=== PATIENT | female | born 1980 | race Caucasian/White ===

== ENCOUNTER 2019-01-06 21:23 | Inpatient (IN) | payer MEDICAID, OTHER ==
[2019-01-07] MEDS: SOD CHLORIDE 0.9% 1,000 ML IV ×2 (00:34→02:20)
[2019-01-07] MEDS: SOD CHLORIDE 0.9% 0 ML IV (01:01)
[2019-01-07] MEDS ORDERED: ACETAMINOPHEN 325 MG TAB PO (02:30)
[2019-01-07] MEDS ORDERED: ONDANSETRON 4 MG INJ IV ×2 (02:30→03:30)
[2019-01-07] MEDS ORDERED: NACL 0.9% 3 ML SYG IV (03:30)
[2019-01-07] MEDS ORDERED: BISACODYL (EC) 5 MG TAB PO (03:30)
[2019-01-07] MEDS ORDERED: DOCUSATE SODIUM 100 MG CAP PO (03:30)
[2019-01-07] MEDS: ACETAMINOPHEN 325 MG TAB PO (09:13)
[2019-01-07] MEDS: CEFTRIAXONE 1 GM/50 ML (PMX) 50 ML IVPB (11:05)
[2019-01-07] MEDS: TRANEXAMIC ACID 1GM/100ML(PMX) 100 ML IV ×2 (14:00→14:33)
[2019-01-07] MEDS: SOD FERRIC GLUC COMPLX 125 MG in SOD CHLORIDE 0.9% 100 ML IVPB (14:38)
[2019-01-07] MEDS: morphine 2 MG INJ IV (22:15)
[2019-01-08] MEDS: CEFTRIAXONE 1 GM/50 ML (PMX) 50 ML IVPB (08:00)
[2019-01-08] MEDS ORDERED: HYDROmorphONE 1 MG/5 ML IV SYRINGE IV ×2 (09:30)
[2019-01-08] MEDS ORDERED: MEPERIDINE 25 MG INJ IV (09:30)
[2019-01-08] MEDS ORDERED: ONDANSETRON 4 MG INJ IV (09:30)
[2019-01-08] MEDS ORDERED: DIPHENHYDRAMINE 50 MG INJ IV (09:30)
[2019-01-08] MEDS ORDERED: FENTAnyl 50 MCG/ML VIAL IV (09:30)
[2019-01-08] MEDS ORDERED: KETOROLAC 30 MG INJ IV (09:30)
[2019-01-08] MEDS ORDERED: KETOROLAC 30 MG INJ (09:45)
[2019-01-08] MEDS ORDERED: METOCLOPRAMIDE 10 MG INJ (09:45)
[2019-01-08] MEDS ORDERED: CEFAZOLIN 1 GM INJ (09:45)
[2019-01-08] MEDS ORDERED: FENTAnyl 50 MCG/ML VIAL (09:45)
[2019-01-08] MEDS ORDERED: PROPOFOL 20 ML (09:45)
[2019-01-08] MEDS: FENTAnyl 50 MCG/ML VIAL IV ×3 (11:19→11:34)
[2019-01-08] MEDS: HYDROmorphONE 1 MG/5 ML IV SYRINGE IV (11:54)
[2019-01-08] MEDS: SOD FERRIC GLUC COMPLX 125 MG in SOD CHLORIDE 0.9% 100 ML IVPB (16:04)
[2019-01-09] MEDS: CEFTRIAXONE 1 GM/50 ML (PMX) 50 ML IVPB (08:18)
[2019-01-09] MEDS: IBUPROFEN 600 MG TAB PO (10:53)
[2019-01-09] MEDS: SOD FERRIC GLUC COMPLX 125 MG in SOD CHLORIDE 0.9% 100 ML IVPB (13:13)
[2019-01-09] MEDS: SOD CHLORIDE 0.9% 250 ML IV* (13:40)
[2019-01-09] MEDS: HYDROCODONE/APAP (5/325) TAB PO (20:37)
[2019-01-10] MEDS: CEFTRIAXONE 1 GM/50 ML (PMX) 50 ML IVPB (09:27)
[2019-01-10] MEDS: HYDROCODONE/APAP (5/325) TAB PO (11:45)
== END 2019-01-10 17:57 | disposition home or self-care (01) | DRG 742 ==
LOC: E/R 21:23 → 6WM 01-07 02:21
PROC: 0U5B7ZZ Destruction of Endometrium, Via Natural or Artificial Opening (ICD-10-PCS; principal; 2019-01-08 09:47)
PROC: 0UDB7ZZ Extraction of Endometrium, Via Natural or Artificial Opening (ICD-10-PCS; 2019-01-08 09:47)
PROC: 0UJD8ZZ Inspection of Uterus and Cervix, Via Natural or Artificial Opening Endoscopic (ICD-10-PCS; 2019-01-08 09:47)
PROC: 30233N1 Transfusion of Nonautologous Red Blood Cells into Peripheral Vein, Percutaneous Approach (ICD-10-PCS; 2019-01-08 09:47)
PROC: 30233N1 Transfusion of Nonautologous Red Blood Cells into Peripheral Vein, Percutaneous Approach (ICD-10-PCS; 2019-01-08 09:47)
DX: N93.8 Other specified abnormal uterine and vaginal bleeding (principal); D62 Acute posthemorrhagic anemia; N39.0 Urinary tract infection, site not specified; D25.9 Leiomyoma of uterus, unspecified; D50.9 Iron deficiency anemia, unspecified
CPT/HCPCS: 36415; 36430; 76830; 76856; 80048; 80053; 81001; 81025; 82728; 83540; 83735; 84100; 84702; 85014; 85018; 85025; 86850; 86900; 86901; 86920; 87086; 88305; 88331; 93970; 96360; 96361; 99285-25